=== PATIENT | female | born 1950 | race Caucasian/White ===

== ENCOUNTER → 2017-06-23 | Outpatient (CLI) | payer OTHER ==
--- NOTE | 2017-06-23 11:14 | WOMENS IMAGING REPORT ---
EXAM DESCRIPTION: BONE DENSITY HIP/SPINE COMPLETED DATE/TIME: 06/23/2017 8:34 am REASON FOR STUDY: OSTEOPROSIS; M81.0 M81.0 AGE-RELATED OSTEOPOROSIS W/O CURRENT PATHOLOGICAL FRAC COMPARISON: 12/09/2012 09/17/2004 TECHNIQUE: Dual-Energy X-ray Absorptiometry (DEXA) of the AP Spine and Hip. LIMITATIONS: None. FINDINGS: LUMBAR SPINE: The bone mineral density (BMD) measured from L1-L4 in the AP projection correlates with a T-score of -1.5, which is osteopenia as defined by the World Health Organization. HIP: The bone mineral density (BMD) measured in the hip correlates with a T-score of -0.8 in the femoral neck, which is normal as defined by the World Health Organization. IMPRESSION: 1. LUMBAR SPINE: Osteopenia 2. HIP: Normal COMMENT: The World Health Organization defines low BMD as follows: T-score: Normal: Greater than -1.0 Osteopenia: Between -1.0 and -2.5 Osteoporosis: Less than -2.5 without fractures Established osteoporosis: Less than -2.5 with fractures In general, you may wish to consider: Diagnosis Treatment Follow-up DEXA Normal BMD Prevention 2-3 years Osteopenia Prevention/Therapy 1-2 years Osteoporosis Therapy Yearly TECHNICAL DOCUMENTATION: JOB ID: [id number] [employer]- All Rights Reserved
== END ==
LOC: WI 08:18
PROVIDERS: ATTEND Family Medicine
DX: M81.0 Age-related osteoporosis without current pathological fracture (principal)
CPT/HCPCS: 77080

== ENCOUNTER → 2018-02-11 | Outpatient (CLI) | payer MEDICARE, OTHER ==
[2018-02-11 08:16] LABS: ABSOLUTE BASOPHILS # (AUTO) 0.1 10^3/uL (0.0-0.2); ABSOLUTE EOSINOPHILS # (AUTO) 0.2 10^3/uL (0.0-0.6); ABSOLUTE LYMPHOCYTES (AUTO) 1.1 10^3/uL (0.5-4.7); ABSOLUTE MONOCYTES (AUTO) 0.5 10^3/uL (0.1-1.4); ABSOLUTE NEUT (AUTO) 3.1 10^3/uL (1.7-8.2); BASOPHILS % (AUTO) 1.3 % (0-2); EOSINOPHILS % (AUTO) 4.2 % (0-6); HEMATOCRIT 36.2 % (36.0-47.0); HEMOGLOBIN 11.9 g/dL (12.0-15.5); MEAN CORPUSCULAR HEMOGLOBIN 28.4 pg (27.0-33.4); MEAN CORPUSCULAR HGB CONC 32.9 g/dL (32.0-36.0); MEAN CORPUSCULAR VOLUME 86 fl (80-97); MONOCYTES % (AUTO) 9.3 % (3-13); PLATELET COUNT 303 10^3/uL (150-450); RED CELL DISTRIBUTION WIDTH 14.3 % (11.5-14.0); SEGMENTED NEUTROPHILS % (AUTO) 62.2 % (42-78); TOTAL CELLS COUNTED % (AUTO) 100 %; WHITE BLOOD COUNT 4.9 10^3/uL (4.0-10.5)
[2018-02-11 08:33] LABS: ALANINE AMINOTRANSFERASE 21 U/L (9-52); ALKALINE PHOSPHATASE 55 U/L (38-126); ANION GAP 9 (5-19); ASPARTATE AMINO TRANSFERASE 15 U/L (14-36); BILIRUBIN,DIRECT 0.2 mg/dL (0.0-0.4); BILIRUBIN,TOTAL 0.3 mg/dL (0.2-1.3); BLOOD UREA NITROGEN 15 mg/dL (7-20); CALCIUM 9.5 mg/dL (8.4-10.2); CARBON DIOXIDE 32 mmol/L (22-30); CHLORIDE 103 mmol/L (98-107); GLUCOSE 101 mg/dL (75-110); POTASSIUM 4.3 mmol/L (3.6-5.0); SODIUM 144.4 mmol/L (137-145); TOTAL PROTEIN 7.1 g/dL (6.3-8.2); TRIGLYCERIDES 77 mg/dL (<150)
[2018-02-11 08:44] LABS: DIRECT LDL 106 mg/dL (<100)
== END ==
LOC: LAB 07:51
PROVIDERS: ATTEND Family Medicine Geriatric Medicine
DX: E55.9 Vitamin D deficiency, unspecified (principal); I10 Essential (primary) hypertension; N32.81 Overactive bladder; Z79.899 Other long term (current) drug therapy
CPT/HCPCS: 36415; 80053; 80061; 82306; 84443; 85025

== ENCOUNTER → 2018-02-25 | Outpatient (CLI) | payer MEDICARE, OTHER ==
--- NOTE | 2018-02-25 11:43 | RADIOLOGY REPORT (SQ) ---
EXAM DESCRIPTION: C SP 4 OR 5 VIEWS COMPLETED DATE/TIME: 02/25/2018 8:08 am REASON FOR STUDY: CERVICALGIA M54.2 CERVICALGIA COMPARISON: None. NUMBER OF VIEWS: Five views. TECHNIQUE: AP, lateral, obliques and odontoid radiographic images acquired of the cervical spine. LIMITATIONS: None. FINDINGS: MINERALIZATION: Osteopenic ALIGNMENT: Convex rightward cervical curvature VERTEBRAE: Vertebral bodies of normal height. DISCS: Disc space loss of height with anterior osteophyte formation at C5-6 and C6-7 FORAMINA: Mild left foraminal narrowing at C5-6 and C6-7 from facet and uncovertebral hypertrophy LATERAL AND POSTERIOR ELEMENTS: Facets, lateral masses and spinous processes without significant find ings. HARDWARE: None in the spine. SOFT TISSUES: No masses or calcifications. Lung apices clear. OTHER: No other significant finding. IMPRESSION: No acute changes. Left-sided C5-6 and C6-7 mild foraminal narrowing. TECHNICAL DOCUMENTATION: JOB ID: [id number] [employer]- All Rights Reserved Reading location - IP/workstation name: [email or web address]
== END ==
LOC: OD 07:53
PROVIDERS: ATTEND Family Medicine Geriatric Medicine
DX: M54.2 Cervicalgia (principal)
CPT/HCPCS: 72050

== ENCOUNTER → 2018-10-21 | Outpatient (CLI) | payer MEDICARE, OTHER ==
[2018-10-21 08:53] LABS: ALANINE AMINOTRANSFERASE 27 U/L (9-52); CHOLESTEROL 212.29 mg/dL (0-200); TRIGLYCERIDES 75 mg/dL (<150)
[2018-10-21 09:06] LABS: DIRECT LDL 129 mg/dL (<100)
== END ==
LOC: OD 07:54
PROVIDERS: ATTEND Family Medicine Geriatric Medicine
DX: E78.5 Hyperlipidemia, unspecified (principal)
CPT/HCPCS: 36415; 80061; 84460

== ENCOUNTER → 2018-10-30 | Outpatient (CLI) | payer MEDICARE, OTHER ==
--- NOTE | 2018-10-30 09:45 | RADIOLOGY REPORT (SQ) ---
EXAM DESCRIPTION: SACRUM AND COCCYX COMPLETED DATE/TIME: 10/30/2018 8:20 am REASON FOR STUDY: LBP M25.552 PAIN IN LEFT HIP Fall 2 months ago with continued left hip and low back pain COMPARISON: Left hip films 10/30/2018 Lumbar spine films 10/30/2018 NUMBER OF VIEWS: Three views. TECHNIQUE: AP, lateral, and tilt views of the sacrum and coccyx. LIMITATIONS: None. FINDINGS: MINERALIZATION: Normal. BONES: No acute fracture or dislocation. No worrisome bone lesions. SOFT TISSUES: No soft tissue swelling. No foreign body. OTHER: No other significant finding. IMPRESSION: NEGATIVE STUDY OF THE SACRUM AND COCCYX. TECHNICAL DOCUMENTATION: JOB ID: [id number] [employer]- All Rights Reserved Reading location - IP/workstation name: [email or web address]
--- NOTE | 2018-10-30 09:52 | RADIOLOGY REPORT (SQ) ---
EXAM DESCRIPTION: HIP LEFT AP/LATERAL COMPLETED DATE/TIME: 10/30/2018 8:20 am REASON FOR STUDY: PAIN IN LEFT HIP, M25.552 PAIN IN LEFT HIP COMPARISON: Sacrum and coccyx films, lumbar spine films same date NUMBER OF VIEWS: Two views. TECHNIQUE: AP pelvis and additional frog-leg view of the left hip. LIMITATIONS: None. FINDINGS: MINERALIZATION: Normal. LEFT HIP: No fracture or dislocation. No worrisome bone lesions. No significant joint space narrowi ng or bony spurring. RIGHT HIP: No fracture or dislocation. No worrisome bone lesions. No significant joint space narrow ing or bony spurring PUBIS AND ISCHIUM: No fracture. PELVIS: No fracture. SACRUM: No fracture or dislocation. No worrisome bone lesions. LOWER LUMBAR SPINE: Bilateral facet arthropathy at L5-S1 [id number]-[id number]-[id number]-right SOFT TISSUES: No findings. OTHER: No other significant finding. IMPRESSION: NEGATIVE STUDY OF THE LEFT HIP AND PELVIS. NO RADIOGRAPHIC EVIDENCE OF ACUTE INJURY. TECHNICAL DOCUMENTATION: JOB ID: [id number] [employer]- All Rights Reserved Reading location - IP/workstation name: [email or web address]
--- NOTE | 2018-10-30 09:53 | RADIOLOGY REPORT (SQ) ---
EXAM DESCRIPTION: LUMBAR SPINE COMPLETE COMPLETED DATE/TIME: 10/30/2018 8:20 am REASON FOR STUDY: LBP M25.552 PAIN IN LEFT HIP COMPARISON: Sacrum and coccyx films, left hip films same date NUMBER OF VIEWS: Five views including obliques. TECHNIQUE: AP, lateral, oblique, and sacral radiographic images acquired of the lumbar spine. LIMITATIONS: None. FINDINGS: MINERALIZATION: Normal. SEGMENTATION: Normal. No transitional anatomy. ALIGNMENT: Normal. VERTEBRAE: Maintained height. No fracture or worrisome bone lesion. DISCS: Mild disc space loss of height at L3-4. No significant osteophytes or end plate irregularity. POSTERIOR ELEMENTS: Pedicles and facets are intact. No pars defect or posterior arch defects. Bilat eral L5-S1 and L4-5 facet arthropathy. HARDWARE: None in the spine. PARASPINAL SOFT TISSUES: Normal. PELVIS: SI joints unremarkable. Entire pelvis not included in the field of view OTHER: No other significant finding. IMPRESSION: Lower lumbar facet arthropathy. Mild disc space loss of height at L3-4 TECHNICAL DOCUMENTATION: JOB ID: [id number] [employer]- All Rights Reserved Reading location - IP/workstation name: [email or web address]
== END ==
LOC: OD 07:56
PROVIDERS: ATTEND Family Medicine Geriatric Medicine
DX: M25.552 Pain in left hip (principal); M54.5 Low back pain
CPT/HCPCS: 72110; 72220

== ENCOUNTER → 2018-12-18 | Outpatient (CLI) | payer MEDICARE, OTHER ==
[2018-12-18 08:13] LABS: ALANINE AMINOTRANSFERASE 21 U/L (9-52); CHOLESTEROL 148.99 mg/dL (0-200); TRIGLYCERIDES 80 mg/dL (<150)
[2018-12-18 08:24] LABS: DIRECT LDL 73 mg/dL (<100)
== END ==
LOC: OD 07:04
PROVIDERS: ATTEND Family Medicine Geriatric Medicine
DX: E78.5 Hyperlipidemia, unspecified (principal)
CPT/HCPCS: 36415; 80061; 84460

== ENCOUNTER → 2019-05-28 | Outpatient (CLI) | payer MEDICARE, OTHER ==
[2019-05-28 08:12] LABS: ABSOLUTE EOSINOPHILS # (AUTO) 0.2 10^3/uL (0.0-0.6); ABSOLUTE LYMPHOCYTES (AUTO) 1.2 10^3/uL (0.5-4.7); ABSOLUTE MONOCYTES (AUTO) 0.5 10^3/uL (0.1-1.4); ABSOLUTE NEUT (AUTO) 2.6 10^3/uL (1.7-8.2); EOSINOPHILS % (AUTO) 4.9 % (0-6); HEMATOCRIT 35.1 % (36.0-47.0); HEMOGLOBIN 11.7 g/dL (12.0-15.5); LYMPHOCYTES % (AUTO) 25.3 % (13-45); MEAN CORPUSCULAR HGB CONC 33.4 g/dL (32.0-36.0); MEAN CORPUSCULAR VOLUME 87 fl (80-97); MONOCYTES % (AUTO) 11.8 % (3-13); PLATELET COUNT 284 10^3/uL (150-450); RED BLOOD COUNT 4.04 10^6/uL (3.72-5.28); RED CELL DISTRIBUTION WIDTH 14.1 % (11.5-14.0); TOTAL CELLS COUNTED % (AUTO) 100 %; WHITE BLOOD COUNT 4.6 10^3/uL (4.0-10.5)
[2019-05-28 08:41] LABS: ALBUMIN 4.2 g/dL (3.5-5.0); ALKALINE PHOSPHATASE 68 U/L (38-126); ANION GAP 11 (5-19); ASPARTATE AMINO TRANSFERASE 17 U/L (14-36); BILIRUBIN,DIRECT 0.2 mg/dL (0.0-0.4); BILIRUBIN,TOTAL 0.5 mg/dL (0.2-1.3); BLOOD UREA NITROGEN 16 mg/dL (7-20); CALCIUM 9.3 mg/dL (8.4-10.2); CARBON DIOXIDE 29 mmol/L (22-30); CHLORIDE 101 mmol/L (98-107); CHOLESTEROL 150.07 mg/dL (0-200); GLUCOSE 96 mg/dL (75-110); POTASSIUM 4.3 mmol/L (3.6-5.0); TRIGLYCERIDES 82 mg/dL (<150)
[2019-05-28 08:52] LABS: DIRECT LDL 82 mg/dL (<100)
== END ==
LOC: OD 07:12
PROVIDERS: ATTEND Family Medicine Geriatric Medicine
DX: I10 Essential (primary) hypertension (principal); E78.5 Hyperlipidemia, unspecified; M54.5 Low back pain; Z79.899 Other long term (current) drug therapy
CPT/HCPCS: 36415; 80053; 80061; 85025

== ENCOUNTER → 2019-09-07 | Outpatient (CLI) | payer MEDICARE, OTHER ==
[2019-09-07 08:28] LABS: ABSOLUTE EOSINOPHILS # (AUTO) 0.2 10^3/uL (0.0-0.6); ABSOLUTE LYMPHOCYTES (AUTO) 1.1 10^3/uL (0.5-4.7); ABSOLUTE MONOCYTES (AUTO) 0.7 10^3/uL (0.1-1.4); ABSOLUTE NEUT (AUTO) 2.7 10^3/uL (1.7-8.2); BASOPHILS % (AUTO) 0.7 % (0-2); EOSINOPHILS % (AUTO) 4.6 % (0-6); HEMATOCRIT 35.1 % (36.0-47.0); HEMOGLOBIN 11.7 g/dL (12.0-15.5); LYMPHOCYTES % (AUTO) 22.9 % (13-45); MEAN CORPUSCULAR HEMOGLOBIN 28.6 pg (27.0-33.4); MEAN CORPUSCULAR HGB CONC 33.3 g/dL (32.0-36.0); MEAN CORPUSCULAR VOLUME 86 fl (80-97); MONOCYTES % (AUTO) 14.7 % (3-13); PLATELET COUNT 275 10^3/uL (150-450); RED BLOOD COUNT 4.08 10^6/uL (3.72-5.28); RED CELL DISTRIBUTION WIDTH 14.6 % (11.5-14.0); SEGMENTED NEUTROPHILS % (AUTO) 57.1 % (42-78); TOTAL CELLS COUNTED % (AUTO) 100 %; WHITE BLOOD COUNT 4.7 10^3/uL (4.0-10.5)
== END ==
LOC: OD 07:46
PROVIDERS: ATTEND Family Medicine Geriatric Medicine
DX: D64.9 Anemia, unspecified (principal); Z79.899 Other long term (current) drug therapy
CPT/HCPCS: 36415; 85025

== ENCOUNTER → 2019-12-06 | Outpatient (CLI) | payer MEDICARE, OTHER ==
[2019-12-06 08:47] LABS: ANION GAP 8 (5-19); BLOOD UREA NITROGEN 14 mg/dL (7-20); CALCIUM 9.1 mg/dL (8.4-10.2); CARBON DIOXIDE 30 mmol/L (22-30); CHLORIDE 102 mmol/L (98-107); GLUCOSE 97 mg/dL (75-110); POTASSIUM 4.3 mmol/L (3.6-5.0); TRIGLYCERIDES 118 mg/dL (<150)
[2019-12-06 08:57] LABS: DIRECT LDL 74 mg/dL (<100)
== END ==
LOC: OD 07:45
PROVIDERS: ATTEND Family Medicine Geriatric Medicine
DX: E78.5 Hyperlipidemia, unspecified (principal); I10 Essential (primary) hypertension; Z79.899 Other long term (current) drug therapy
CPT/HCPCS: 36415; 80048; 80061; 84460

== ENCOUNTER → 2019-12-13 | Outpatient (CLI) | payer MEDICARE, OTHER ==
--- NOTE | 2019-12-13 08:46 | WOMENS IMAGING REPORT ---
EXAM DESCRIPTION: BILAT SCREENING MAMMO W/CAD COMPLETED DATE/TIME: 12/13/2019 7:57 am REASON FOR STUDY: Z12.31 SCREENING IMDGBC76.31 ENCNTR SCREEN MAMMOGRAM FOR MALIGNANT NEOPLASM OF BR E COMPARISON: None. EXAM PARAMETERS: Standard craniocaudal and mediolateral oblique views of each breast recorded using digital acquisition. Read with the assistance of CAD. .[facility] - [employer] Version 9.2 LIMITATIONS: None. FINDINGS: RIGHT BREAST MASSES: No suspicious masses. CALCIFICATIONS: No new or suspicious calcifications. ARCHITECTURAL DISTORTION: None. ASYMMETRY: None noted. OTHER: No other significant findings. LEFT BREAST MASSES: No suspicious masses. CALCIFICATIONS: No new or suspicious calcifications. ARCHITECTURAL DISTORTION: None. ASYMMETRY: Focal asymmetries in the lateral breast, 1 at close to 6 cm an 1 a close to 9 cm from the nipple, mid depth CC view only. OTHER: No other significant findings. IMPRESSION: Focal asymmetries in the left breast. Recommend comparison with outside mammograms or s pot compression mammograms and ultrasound if priors cannot be obtained. 0 Incomplete: Needs Additional Imaging Evaluation and/or prior Mammograms for Comparison. BREAST DENSITY: b. There are scattered areas of fibroglandular density. BIRAD: ASSESSMENT: 0 Incomplete: Needs Additional Imaging Evaluation and/or prior Mammograms for C omparison. RECOMMENDATION: RECOMMENDED FOLLOW-UP: As above. The patient will be contacted for additional imaging. COMMENT: The patient has been notified of the results by letter per SA requirements. Additional no tification policies are in place for contacting patient with suspicious or incomplete findings. Quality ID #225: The [employer] recommends an annual screening mammogram for women aged 40 years or over. This facility utilizes a reminder system to ensure that all patients receive reminder letters, and/or direct phone calls for appointments. This includes reminders for routine scr eening mammograms, diagnostic mammograms, or other Breast Imaging Interventions when appropriate. Th is patient will be placed in the appropriate reminder system. TECHNICAL DOCUMENTATION: FINDING NUMBER: (1) ASSESSMENT: (1) JOB ID: [id number] 2010 [employer]- All Rights Reserved Reading location - IP/workstation name: [email or web address]
== END ==
LOC: WI 07:35
PROVIDERS: ATTEND Family Medicine Geriatric Medicine
DX: Z12.31 Encounter for screening mammogram for malignant neoplasm of breast (principal); N64.89 Other specified disorders of breast
CPT/HCPCS: 77067

== ENCOUNTER → 2019-12-27 | Outpatient (CLI) | payer MEDICARE, OTHER ==
--- NOTE | 2019-12-27 09:38 | WOMENS IMAGING REPORT ---
EXAM DESCRIPTION: 3D DX MAMMO LEFT UNILAT; U/S BREAST UNILAT LIMITED COMPLETED DATE/TIME: 12/27/2019 8:54 am; 12/27/2019 9:16 am REASON FOR STUDY: R92.2 LEFT DX; R92.2 LEFT BREAST COMPARISON: 12/13/2019 EXAM PARAMETERS: True lateral cone compression views and tomosynthesis. LIMITATIONS: None. FINDINGS: BREAST LATERALITY: left MASSES: No suspicious masses. CALCIFICATIONS: No new or suspicious calcifications. ARCHITECTURAL DISTORTION: None. ASYMMETRY: Focal asymmetry lateral aspect partially compresses out. Not well visualized in the ortho gonal view. OTHER: No other significant findings. Ultrasound demonstrates focal area of asymmetry with posterior shadowing in the 3 o'clock position me asuring about 8 x 4 x 8 mm. IMPRESSION: Indeterminate lesion left breast. BREAST DENSITY: b. There are scattered areas of fibroglandular density. BIRAD: ASSESSMENT: 4 Suspicious. Biopsy should be performed in the absence of clinical contra-indic ation. RECOMMENDATION: RECOMMENDED FOLLOW UP: Birads 4: Biopsy should be performed in the absence of clinic al contraindication. SPECIFIC INTERVENTION/IMAGING/CONSULTATION RECOMMENDED:The suspicious finding(s) amenable to US guide d core/vacuum assisted biopsy. COMMUNICATION:The imaging findings were not discussed with the patient. Her referring provider has be en notified of the findings. COMMENT: The patient has been notified of the results by letter per MQSA requirements. Additional no tification policies are in place for contacting patient with suspicious or incomplete findings. Quality ID #225: The [employer] recommends an annual screening mammogram for women aged 40 years or over. This facility utilizes a reminder system to ensure that all patients receive reminder letters, and/or direct phone calls for appointments. This includes reminders for routine scr eening mammograms, diagnostic mammograms, or other Breast Imaging Interventions when appropriate. Th is patient will be placed in the appropriate reminder system. TECHNICAL DOCUMENTATION: FINDING NUMBER: (1) ASSESSMENT: (1) JOB ID: [id number] 2010 [employer]- All Rights Reserved Reading location - IP/workstation name: [email or web address]
== END ==
LOC: WI 08:13
PROVIDERS: ATTEND Family Medicine Geriatric Medicine
DX: N64.89 Other specified disorders of breast (principal)
CPT/HCPCS: 76642; 77065; G0279

== ENCOUNTER → 2020-03-06 | Outpatient (CLI) | payer MEDICARE, OTHER ==
[2020-03-06 08:55] LABS: ABSOLUTE BASOPHILS # (AUTO) 0.1 10^3/uL (0.0-0.2); ABSOLUTE EOSINOPHILS # (AUTO) 0.2 10^3/uL (0.0-0.6); ABSOLUTE LYMPHOCYTES (AUTO) 1.2 10^3/uL (0.5-4.7); ABSOLUTE MONOCYTES (AUTO) 0.5 10^3/uL (0.1-1.4); BASOPHILS % (AUTO) 1.2 % (0-2); EOSINOPHILS % (AUTO) 4.4 % (0-6); HEMATOCRIT 35.4 % (36.0-47.0); HEMOGLOBIN 11.9 g/dL (12.0-15.5); LYMPHOCYTES % (AUTO) 23.3 % (13-45); MEAN CORPUSCULAR HEMOGLOBIN 28.5 pg (27.0-33.4); MEAN CORPUSCULAR HGB CONC 33.5 g/dL (32.0-36.0); MEAN CORPUSCULAR VOLUME 85 fl (80-97); MONOCYTES % (AUTO) 9.8 % (3-13); PLATELET COUNT 285 10^3/uL (150-450); RED BLOOD COUNT 4.16 10^6/uL (3.72-5.28); RED CELL DISTRIBUTION WIDTH 15.3 % (11.5-14.0); SEGMENTED NEUTROPHILS % (AUTO) 61.3 % (42-78); TOTAL CELLS COUNTED % (AUTO) 100 %; WHITE BLOOD COUNT 4.9 10^3/uL (4.0-10.5)
[2020-03-06 09:31] LABS: ANION GAP 9 (5-19); BLOOD UREA NITROGEN 17 mg/dL (7-20); CALCIUM 9.2 mg/dL (8.4-10.2); CARBON DIOXIDE 27 mmol/L (22-30); CHLORIDE 103 mmol/L (98-107); GLUCOSE 100 mg/dL (75-110); POTASSIUM 4.1 mmol/L (3.6-5.0)
== END ==
LOC: OD 08:10
PROVIDERS: ATTEND Family Medicine Geriatric Medicine
DX: E78.5 Hyperlipidemia, unspecified (principal); I10 Essential (primary) hypertension; E66.3 Overweight; Z79.899 Other long term (current) drug therapy
CPT/HCPCS: 36415; 80048; 84443; 85025

== ENCOUNTER → 2020-06-02 | Outpatient (CLI) | payer MEDICARE, OTHER ==
[2020-06-02 10:01] LABS: CHOLESTEROL 147.22 mg/dL (0-200); TRIGLYCERIDES 84 mg/dL (<150)
[2020-06-02 10:12] LABS: DIRECT LDL 73 mg/dL (<100)
== END ==
LOC: OD 08:03
PROVIDERS: ATTEND Family Medicine Geriatric Medicine
DX: E78.5 Hyperlipidemia, unspecified (principal); Z79.899 Other long term (current) drug therapy
CPT/HCPCS: 36415; 80061; 84460

== ENCOUNTER → 2020-09-04 | Outpatient (CLI) | payer MEDICARE, OTHER ==
[2020-09-04 09:06] LABS: ABSOLUTE EOSINOPHILS # (AUTO) 0.2 10^3/uL (0.0-0.6); ABSOLUTE MONOCYTES (AUTO) 0.5 10^3/uL (0.1-1.4); ABSOLUTE NEUT (AUTO) 3.3 10^3/uL (1.7-8.2); HEMATOCRIT 35.7 % (36.0-47.0); HEMOGLOBIN 11.8 g/dL (12.0-15.5); LYMPHOCYTES % (AUTO) 19.5 % (13-45); MEAN CORPUSCULAR HEMOGLOBIN 28.5 pg (27.0-33.4); MEAN CORPUSCULAR VOLUME 86 fl (80-97); PLATELET COUNT 292 10^3/uL (150-450); RED BLOOD COUNT 4.13 10^6/uL (3.72-5.28); RED CELL DISTRIBUTION WIDTH 14.8 % (11.5-14.0); SEGMENTED NEUTROPHILS % (AUTO) 65.5 % (42-78); TOTAL CELLS COUNTED % (AUTO) 100 %
[2020-09-04 09:28] LABS: ANION GAP 6 (5-19); BLOOD UREA NITROGEN 17 mg/dL (7-20); CALCIUM 9.4 mg/dL (8.4-10.2); CARBON DIOXIDE 31 mmol/L (22-30); CHLORIDE 102 mmol/L (98-107); GLUCOSE 101 mg/dL (75-110); POTASSIUM 4.5 mmol/L (3.6-5.0)
== END ==
LOC: OD 08:14
PROVIDERS: ATTEND Family Medicine Geriatric Medicine
DX: I10 Essential (primary) hypertension (principal); Z79.899 Other long term (current) drug therapy
CPT/HCPCS: 36415; 80048; 85025

== ENCOUNTER → 2020-10-13 | Outpatient (CLI) | payer MEDICARE, OTHER ==
--- NOTE | 2020-10-13 11:05 | RADIOLOGY REPORT (SQ) ---
EXAM DESCRIPTION: KNEE LEFT 4 VIEW IMAGES COMPLETED DATE/TIME: 10/13/2020 10:56 am REASON FOR STUDY: L KNEE PAIN M70.52 OTHER BURSITIS OF KNEE, LEFT KNEE COMPARISON: None. NUMBER OF VIEWS: Four views. TECHNIQUE: AP, lateral, and both oblique radiographic images acquired of the left knee. LIMITATIONS: None. FINDINGS: MINERALIZATION: Normal. BONES: No acute fracture or dislocation. No worrisome bone lesions. No significant osteophytes. JOINT: No effusion. No chondrocalcinosis. OTHER: No other significant finding. IMPRESSION: NEGATIVE STUDY OF THE LEFT KNEE. NO EXPLANATION FOR PAIN. TECHNICAL DOCUMENTATION: JOB ID: [id number] 2010 [employer]- All Rights Reserved Reading location - IP/workstation name: [email or web address]
== END ==
LOC: RAD 10:12
PROVIDERS: ATTEND Family Medicine Geriatric Medicine
DX: M70.52 Other bursitis of knee, left knee (principal); M25.562 Pain in left knee

== ENCOUNTER → 2020-10-24 | Outpatient (CLI) | payer MEDICARE, OTHER ==
--- NOTE | 2020-10-24 10:09 | WOMENS IMAGING REPORT ---
EXAM DESCRIPTION: BILAT DIAGNOSTIC MAMMO W/CAD IMAGES COMPLETED DATE/TIME: 10/24/2020 10:01 am REASON FOR STUDY: N63.20 N63.20 UNSPECIFIED LUMP IN THE LEFT BREAST, UNSPECIFIED QUAD COMPARISON: 12/13/2019 EXAM PARAMETERS: Standard craniocaudal and mediolateral oblique views of each breast recorded using digital acquisition. True lateral view left breast. Read with the assistance of CAD: .[employer] - [employer] Version 9.2 LIMITATIONS: None. FINDINGS: RIGHT BREAST MASSES: No suspicious masses. CALCIFICATIONS: No new or suspicious calcifications. ARCHITECTURAL DISTORTION: None. ASYMMETRY: None noted. OTHER: No other significant findings. LEFT BREAST MASSES: No suspicious masses. CALCIFICATIONS: No new or suspicious calcifications. ARCHITECTURAL DISTORTION: None. ASYMMETRY: None noted. OTHER: Biopsy clip. IMPRESSION: No evidence of malignancy. BREAST DENSITY: b. There are scattered areas of fibroglandular density. BIRAD: ASSESSMENT: 2 Benign findings. RECOMMENDATION: RECOMMENDED FOLLOW UP: Annual mammographic follow-up. SPECIFIC INTERVENTION/IMAGING/CONSULTATION RECOMMENDED:No additional intervention/ imaging/consultati on needed at this time. COMMUNICATION:The imaging findings were not discussed with the patient. Her referring provider has be en notified of the findings. COMMENT: The patient has been notified of the results by letter per MQSA requirements. Additional no tification policies are in place for contacting patient with suspicious or incomplete findings. Quality ID #225: The [employer] recommends an annual screening mammogram for women aged 40 years or over. This facility utilizes a reminder system to ensure that all patients receive reminder letters, and/or direct phone calls for appointments. This includes reminders for routine scr eening mammograms, diagnostic mammograms, or other Breast Imaging Interventions when appropriate. Th is patient will be placed in the appropriate reminder system. TECHNICAL DOCUMENTATION: FINDING NUMBER: (1) ASSESSMENT: (1) JOB ID: [id number] 2010 [employer]- All Rights Reserved Reading location - IP/workstation name: [email or web address]
== END ==
LOC: WI 09:35
PROVIDERS: ATTEND Family Medicine Geriatric Medicine
DX: N63.20 Unspecified lump in the left breast, unspecified quadrant (principal)
CPT/HCPCS: 77066